=== PATIENT | male | born 1990 | race African-American/Black ===

== ENCOUNTER 2016-08-18 23:09 | Emergency (ER) | payer OTHER ==
[~2016-08-18] VITALS: Ht 177.8 cm; Wt 90.7 kg
[2016-08-18] MEDS ORDERED: LORazepam Inj 2mg/ml 1ml ONE (23:21)
[2016-08-18] MEDS ORDERED: Haloperidol 5mg/ml Inj ONE (23:22)
[2016-08-18] MEDS ORDERED: DiphenhydrAMINE 50mg/ml Inj ONE (23:23)
[2016-08-18] MEDS ORDERED: Haloperidol 5mg/ml Inj IM ONE (23:30)
[2016-08-18] MEDS ORDERED: DiphenhydrAMINE 50mg/ml Inj IM ONE (23:30)
[2016-08-18] MEDS ORDERED: LORazepam Inj 2mg/ml 1ml IM ONE (23:30)
[2016-08-19 02:00] VITALS: BP 142/113
[2016-08-19 05:30] VITALS: BP 138/69
[2016-08-19 05:44] VITALS: BP 138/69
--- NOTE | 2016-08-19 06:48 | Emergency Room Report ---
History of Present Illness General Chief Complaint: Behavioral Complaint Source: Patient, EMS Present Illness HPI 25-year-old male presents to ED for evaluation. Patient is in police custody with EMS. Per EMS patient was arrested and and holding patient started to complain of tooth pain. Patient then stated he had shortness of breath or chest pain. After which patient became very agitated and combative. Screaming and yelling. EMS gave 5 mg of Versed without effect. Upon arrival patient is agitated and combative, in restraints. Screaming and yelling. Unable to provide any additional history at this time. No other aggravating relieving factors. No other associated symptoms Allergies: Coded Allergies: UNABLE TO ASSESS (Unverified , 08/18/16) Patient History Past Medical History: psych hx Past Surgical History: none Pertinent Family History: none Social History: Reports: drug use, Denies: alcohol use, smoking Immunizations: UTD Reviewed Nursing Documentation: PMH: Agreed, PSxH: Agreed Nursing Documentation-PMH Past Medical History: No Stated History Review of Systems All Other Systems: limited Physical Exam Vital Signs Date Time Temp Pulse Resp B/P Pulse Ox O2 Delivery O2 Flow Rate FiO2 08/18/16 23:21 120 30 100 Room Air 08/19/16 02:00 97.8 142/113 Sp02 EP Interpretation: reviewed, normal General Appearance: alert, GCS 15, non-toxic, mild distress, other - agitated/ combative Head: normocephalic, atraumatic Eyes: bilateral eye PERRL, bilateral eye normal inspection ENT: hearing grossly normal, normal pharynx, no angioedema, normal voice Neck: full range of motion, supple/symm/no masses Respiratory: chest non-tender, lungs clear, normal breath sounds, speaking full sentences Cardiovascular #1: regular rate, rhythm, no edema Cardiovascular #2: 2+ carotid (R), 2+ carotid (L), 2+ radial (R), 2+ radial (L) , 2+ dorsalis pedis (R), 2+ dorsalis pedis (L) Gastrointestinal: normal bowel sounds, non tender, soft, non-distended, no guarding, no rebound Rectal: deferred Genitourinary: normal inspection, no CVA tenderness Musculoskeletal: back normal, gait/station normal, normal range of motion, non- tender Neurologic: other - agitated/combative Psychiatric: other - agitated/combative Reflexes: 3+ bicep (R), 3+ bicep (L), 3+ tricep (R), 3+ tricep (L), 3+ knee (R) , 3+ knee (L) Skin: normal color, no rash, warm/dry, well hydrated Lymphatic: no adenopathy Medical Decision Making Diagnostic Impression: Primary Impression: Substance abuse Additional Impression: Behavioral change ER Course Hospital Course 25-year-old male presents for evaluation. Active aggressively, in police custody Differential diagnoses include: Psychosis, EtOH, drug abuse Clinical course patient placed on stretcher. On vehicle monitor technician. After initial history and physical ordered Haldol/Ativan for sedation Patient is a longer in police custody. Patient is now awake alert oriented x3. Patient denies ever having chest pain or tooth pain or shortness of breath. States he was having an anxiety attack because he was under arrest. Patient agrees to be discharged at this time i. I feel this is a highly complex case requiring extensive working including EKG/Rhythm strip, Xray/CT/US, Blood/urine lab work, repeat exams while in ED, and administration of strong opiates/narcotics for pain control, admission to hospital or close patient follow up. Diagnosis - substance abuse, behavioral change Stable and discharged to home. Followup with PMD. Return to ED if symptoms recur or worsen Last Vital Signs Date Time Temp Pulse Resp B/P Pulse Ox O2 Delivery O2 Flow Rate FiO2 08/19/16 05:44 79 18 138/69 99 Room Air 08/19/16 05:30 98.0 Status: improved Disposition: HOME, SELF-CARE Condition: Stable Patient Instructions: Substance Use Disorder MIHAI FITZPATRICK M.D. Aug 19, 2016 06:48
== END 2016-08-19 05:45 | disposition home or self-care (01) ==
LOC: EDBD 23:09 → EMR 08-19 01:37
DX: F19.10 Other psychoactive substance abuse, uncomplicated (principal); F68.8 Other specified disorders of adult personality and behavior; R07.9 Chest pain, unspecified; R45.1 Restlessness and agitation
CPT/HCPCS: 96372; 99284; J1200; J1630